=== PATIENT | female | born 1985 | race Caucasian/White ===

== ENCOUNTER 2016-08-26 13:32 | Emergency (ER) | payer OTHER, MEDICAID ==
[~2016-08-26] VITALS: Ht 165.1 cm; Wt 116.0 kg
[~2016-08-26 13:32] MED LIST: BREAST PUMP1 MI1; IBUP-232 PO; PREN29TA PO; SENN1TAB PO; VENTAER INH
[2016-08-26 13:36] VITALS: BP 140/87; PULSE 82; RESP 16; TEMP 97.4; O2SAT 96
[2016-08-26] MEDS ORDERED: ACETAMINOPHEN/HYDROcodone 325 MG/5 MG TAB PO ONE (14:00)
[2016-08-26] MEDS ORDERED: HYDR-3533 PO (14:02)
[2016-08-26] MEDS ORDERED: DICL75TA PO (14:02)
--- NOTE | 2016-08-26 14:20 | PD ---
HPI Chief Complaint: Injury Time Seen by Provider: 14:15 Travel History International Travel<30 days: No Contact w/Intl Traveler<30days: No Traveled to known affect area: No History of Present Illness HPI 30-year-old female that presents to the ED for evaluation of right hand injury after she tripped and fell into her right hand. Per patient she's been having pain and swelling on the lateral aspect of the hand since. Per patient this happened early today. She denies any other trauma. No head injury or loss of consciousness. His been applying ice to the area. Per patient pain is 4 out of 10 and gets worse with touch and with movement of the left fifth digit. He is able to move the finger however. She denies any numbness, tilling, weakness. No prior injuries to the area. No surgeries to the area. Allergies to amoxicillin. PFSH Past Medical History Asthma: Yes Diminished Hearing: No Tetanus Vaccination: < 5 Years Influenza Vaccination: No ?: LMP: 2 WEEKS Past Surgical History Other Surgery: Yes (lump removed off of breast) Social History Alcohol Use: No Tobacco Use: Yes (occasional) Substance Use: Yes (marijuana ) Allergies-Medications (Allergen,Severity, Reaction): Coded Allergies: Amoxicillin (Verified Allergy, Unknown, swelling, 08/26/16) Uncoded Allergies: shell (Allergy, Unknown, 04/20/16) Reported Meds & Prescriptions Reported Meds & Active Scripts Active Diclofenac Sodium DR (Diclofenac Sodium) 75 Mg Tabdr 75 Mg PO BID PRN Lortab (Hydrocodone-Acetaminophen) 5-325 Mg Tab 1 Tab PO Q6H PRN Reported Ventolin Hfa 18 GM Inh (Albuterol Sulfate) 90 Mcg/Act Aer 2 Puff INH Q4-6H PRN Review of Systems Except as stated in HPI: all other systems reviewed are Neg Physical Exam Narrative GENERAL: SKIN: Warm and dry. HEAD: Atraumatic. Normocephalic. EYES: Pupils equal and round. No scleral icterus. No injection or drainage. ENT: No nasal bleeding or discharge. Mucous membranes pink and moist. NECK: Trachea midline. No JVD. CARDIOVASCULAR: Regular rate and rhythm. RESPIRATORY: No accessory muscle use. Clear to auscultation. Breath sounds equal bilaterally. GASTROINTESTINAL: Abdomen soft, non-tender, nondistended. Hepatic and splenic margins not palpable. MUSCULOSKELETAL: Extremities without clubbing, cyanosis, or edema. No obvious deformities. Full range of motion of all fingers including the right fifth digit. Patient does have deformity noted on the fifth knuckle. Tender to palpation. Some swelling and deformity noted in this area. Tenderness to palpation around this area. Good capillary refill of all fingers. 2+ pulses in the radial and ulnar arteries. No scaphoid tenderness. No other deformity noted. NEUROLOGICAL: Awake and alert. No obvious cranial nerve deficits. Motor grossly within normal limits. Five out of 5 muscle strength in the arms and legs. Normal speech. PSYCHIATRIC: Appropriate mood and affect; insight and judgment normal. Data Data Last Documented VS Vital Signs Date Time Temp Pulse Resp B/P Pulse Ox O2 Delivery O2 Flow Rate FiO2 08/26/16 13:47 Room Air 08/26/16 13:36 97.4 82 16 140/87 96 Orders Hand, Complete ([id number]) (08/26/16 ) Acetamin-Hydrocod 325-5 Mg ([place] 5-325 (08/26/16 14:00) Splint Or Brace Apply/Monitor (08/26/16 14:01) MDM Medical Decision Making Medical Screen Exam Complete: Yes Emergency Medical Condition: Yes Medical Record Reviewed: Yes Interpretation(s) X-ray of the right hand show fracture of the distal fifth metacarpal with some angulation. Read by me and attending. Differential Diagnosis Fracture versus sprain versus strain versus bruise versus contusion Narrative Course 30-year-old female that presents to the ED for evaluation of right hand injury. Patient was properly examined and was found to have signs and symptoms consistent with appears to be fractures. X-rays were ordered. X-rays were positive for right hand fracture. At this time I do not see any need for acute surgical treatment. Patient will be given a splint. Patient was given Lortab for pain. Patient was given a prescription for Lortab and ibuprofen. She was instructed to follow closely with PCP. See ED for worsening symptoms. Follow with hand surgeon. Given note for work. She agrees with plan. Understands need for follow up. Diagnosis Primary Impression: Fracture of fifth metacarpal bone of right hand Qualified Code: S62.366A - Closed nondisplaced fracture of neck of fifth metacarpal bone of right hand, initial encounter Referrals: Joshua Brown MD Patient Instructions: General Instructions, Narcotic given in the ED Additional Instructions: Take medications as prescribed. Follow-up with PCP and hand surgeon See ED for any worsening symptoms. Do not drink or drive while taking pain medication. Apply ice or heat as needed for pain Med/Other Pt SpecificInfo: Prescription(s) given Scripts Diclofenac Sodium DR 75 Mg Tabdr75 Mg PO BID PRN (PAIN SCALE 1 TO 10) #20 TAB Prov:Ammon Pereira MD 08/26/16 Hydrocodone-Acetaminophen (Lortab)5-325 Mg Tab1 Tab PO Q6H PRN (PAIN) #15 TAB Prov:Ammon Pereira MD 08/26/16 Disposition: 01 DISCHARGE HOME Condition: Stable Hi Graham Aug 26, 2016 14:20
--- NOTE | 2016-08-26 14:45 | RADHPO ---
EXAM DATE/TIME: 08/26/2016 13:55 [facility] COMPARISON: No previous studies available for comparison. INDICATIONS : Fell on right hand this am MEDICAL HISTORY : None. SURGICAL HISTORY : None. ENCOUNTER: Initial ACUITY: 1 day PAIN SCORE: 4/10 LOCATION: Right hand FINDINGS: 3 views of the right hand demonstrate a fracture of the fifth metacarpal head with mild volar angulat ion moderate adjacent soft tissue edema. The remainder of the exam is unremarkable. CONCLUSION: Metacarpal head fracture. Abigail Harry MD on August 26, 2016 at 14:43 Board Certified Radiologist. This report was verified electronically.
== END 2016-08-26 14:53 | disposition home or self-care (01) ==
LOC: PHEFT 13:32
DX: S62.366A Nondisplaced fracture of neck of fifth metacarpal bone, right hand, initial encounter for closed fracture (principal); J45.909 Unspecified asthma, uncomplicated; Z72.0 Tobacco use; W01.0XXA Fall on same level from slipping, tripping and stumbling without subsequent striking against object, initial encounter
CPT/HCPCS: 29105; 73130